=== PATIENT | male | born 1970 | race Caucasian/White ===

== ENCOUNTER 2018-08-24 12:22 | Day surgery (SDC) | payer OTHER ==
[~2018-08-24] VITALS: Ht 167.6 cm; Wt 83.6 kg
[2018-08-24] VITALS (8 sets, daily range): BP systolic 110–150; BP diastolic 65–99; PULSE 65–88; TEMP 97.4–97.9
[2018-08-24] MEDS ORDERED: MULTI VITAMINS1 TAB PO (12:41)
[2018-08-24] MEDS ORDERED: VITAMIN C500 MG PO (12:41)
[2018-08-24] MEDS ORDERED: ADVIL200 MG PO (12:42)
[2018-08-24] MEDS ORDERED: ZOCOR 20MG20 MG PO (12:44)
--- NOTE | 2018-08-24 16:19 | NUR ---
Patient to OR with MARY Vera at this time.
--- NOTE | 2018-08-24 18:41 | NUR ---
PT ARRIVED VIA GURNEY, ACCOMPANIED BY . PT A/O X4. PT GOT UP TO BATHROOM AND URINATED WITHOUT DIFFICULTIES. PT DENIES PAIN OR DISCOMFORT AT THIS TIME. PT ASSISTED BACK TO BED AND HOB ELEVATED TO 30 DEGREE ANGLE. NO FURTHER NEEDS AT THIS TIME, CALL LIGHT WITHIN REACH.
[2018-08-24] MEDS ORDERED: NORCO 325 MG-51 TAB PO (18:42)
[2018-08-24] MEDS ORDERED: MOTRIN 600600 MG/TAB PO (18:42)
[2018-08-24] MEDS ORDERED: COLACE 100100 MG/CAP PO (18:42)
--- NOTE | 2018-08-24 21:50 | NUR ---
PT HAD EATEN SOME JELLO AND DRANK SOME WATER, WHICH HE TOLERATED WELL. PT ALSO AMBULATED IN THE HALLS AND GAIT WAS STEADY.
--- NOTE | 2018-08-24 22:15 | NUR ---
REMOVED IV FROM RIGHT HAND, CATHETER INTACT, APPLIED PRESSURE TILL BLEEDING STOPPED, AND A PROTECTIVE DRSG OVER SITE. PT DENIED ANY PAIN OR DISCOMFORT AT THIS TIME. INCISION SITES SHOW NO S/S OF INFECTION, GAVE DISCHARGE TO PT AND , AND THEY VERBALIZED UNDERSTANDING. PT HAS ALL PERSONAL BELONGS, LEFT VIA WHEEL CHAIR TO PRIVATE VEHICLE WITH AND MOTHER.
== END 2018-08-24 22:15 | disposition home or self-care (01) ==
LOC: SDCO 12:22 → SURG 20:27 → SDCO 22:15
DX: K40.20 Bilateral inguinal hernia, without obstruction or gangrene, not specified as recurrent (principal); E78.00 Pure hypercholesterolemia, unspecified; Z98.52 Vasectomy status; Z80.8 Family history of malignant neoplasm of other organs or systems; Z82.49 Family history of ischemic heart disease and other diseases of the circulatory system; Z83.3 Family history of diabetes mellitus
CPT/HCPCS: OP; A4314; C1781; J0690; J1100; J1885; J2405; J2704; J3010; J7120